=== PATIENT | male | born 1965 | race Caucasian/White ===

== ENCOUNTER 2019-05-05 09:30 | Day surgery (SDC) | payer BC ==
[2019-05-05] VITALS (12 sets, daily range): BP systolic 92–148; BP diastolic 65–91; PULSE 80–92; RESP 10–16; Ht 190.5 cm; Wt 140.7 kg
[~2019-05-05] VITALS: Ht 190.5 cm; Wt 140.7 kg
[~2019-05-05 09:30] MED LIST: ALLO100T ORAL; ASPI-817 PO; ATOR40TA68 ORAL; BUPIVACAINE 0.5% (SDV) 30 ML, morphine SULFATE (PF) 8 MG, EPINEPHrine 0.3 MG, KETOROLAC... IRR SCH; CARV3.1260 ORAL; CEFAZOLIN 2 GM/50 ML (PMX) 50 ML IVPB SCH; CLOP75TA28 ORAL; DEXAMETHASONE 2 MG TAB PO ONE; GABAPENTIN 300 MG CAP PO SCH; HYDR-3601 ORAL; INDO75CA3 ORAL; LISI-313 ORAL; METF100010 ORAL; TAMS-14 PO; TRANEXAMIC ACID 1GM/100ML(PMX) 100 ML IVPB SCH
[2019-05-05] MEDS ORDERED: LACTATED RINGER'S 1,000 ML IV SCH (11:00)
[2019-05-05] MEDS ORDERED: FENTAnyl 50 MCG/ML VIAL ONE (13:17)
[2019-05-05] MEDS ORDERED: NEOSTIGMINE 3 MG/3 ML SYRINGE ONE (13:17)
[2019-05-05] MEDS ORDERED: PROPOFOL 20 ML ONE (13:17)
[2019-05-05] MEDS ORDERED: GLYCOPYRROLATE 0.4 MG INJ ONE (13:17)
[2019-05-05] MEDS ORDERED: ONDANSETRON 4 MG INJ ONE (13:17)
[2019-05-05] MEDS ORDERED: ROCURONIUM 50 MG INJ ONE (13:17)
[2019-05-05] MEDS ORDERED: MIDAZOLAM 1 MG/ML 2 ML INJ ONE (13:17)
[2019-05-05] MEDS ORDERED: CEFAZOLIN 1 GM INJ ONE (13:17)
[2019-05-05] MEDS ORDERED: DEXAMETHASONE 4 MG/ML 5 ML INJ ONE (13:17)
[2019-05-05] MEDS ORDERED: SUCCINYLCHOLINE CHLORIDE 100 MG/5 ML SYG IV ONE (13:17)
[2019-05-05] MEDS ORDERED: EPINEPHrine 1 MG/ML 30 ML INJ ONE (13:53)
[2019-05-05] MEDS ORDERED: TRANEXAMIC ACID 1GM/100ML(PMX) 100 ML ONE ×2 (14:43→15:22)
[2019-05-05] MEDS ORDERED: HYDROCODONE/APAP (5/325) TAB PO ONE (17:30)
== END 2019-05-05 18:45 | disposition home or self-care (01) ==
LOC: SDS 09:30
PROVIDERS: ATTEND Orthopaedic Surgery
DX: M25.851 Other specified joint disorders, right hip (principal); S73.191A Other sprain of right hip, initial encounter; X58.XXXA Exposure to other specified factors, initial encounter; M24.151 Other articular cartilage disorders, right hip; E11.9 Type 2 diabetes mellitus without complications; I10 Essential (primary) hypertension; I25.10 Atherosclerotic heart disease of native coronary artery without angina pectoris; Z79.82 Long term (current) use of aspirin; Z79.84 Long term (current) use of oral hypoglycemic drugs
CPT/HCPCS: 29914; 73530; 82962; 86850; 86900; 86901; J0171; J0690; J0735; J1100; J1885; J2250; J2274; J2405; J2710; J3010; J3370; 73501